=== PATIENT | female | born 1990 | race Hispanic/Latino ===

== ENCOUNTER 2017-11-08 14:59 | Emergency (ER) | payer MEDICARE ==
[~2017-11-08] VITALS: Ht 162.6 cm; Wt 70.3 kg
--- OUTSIDE RECORDS SUMMARY | 2017-11-08 15:02 | XMS REPORT | Clinical Summary ---
Author Author [facility] Address Unknown Phone Unavailable Care Team Providers Care Side Seam Machine Operator Name Role Phone System, Not In MD PCP Unavailable Allergies Active Allergy Reactions Severity Noted Date Comments Hydrocodone-Acetaminophen 06/03/2016 Current Medications No known medications Active Problems Not on file Social History Tobacco Use Types Packs/Day Years Used Date Never Smoker Alcohol Use Drinks/Week oz/Week Comments No Sex Assigned at Date Recorded Not on file Last Filed Vital Signs Not on file Plan of Treatment Health Maintenance Due Date Last Done Comments PAP SMEAR 2013 INFLUENZA VACCINE 02/21/2018 Results Not on fileafter 11/07/2016
--- OUTSIDE RECORDS SUMMARY | 2017-11-08 15:02 | XMS REPORT ---
Author Author [facility] Address Unknown Phone Unavailable Care Team Providers Care Bottling Equipment Sales Representative Name Role Phone Unavailable Unavailable Problems This patient has no known problems. Allergies, Adverse Reactions, Alerts This patient has no known allergies or adverse reactions. Medications This patient has no known medications. Encounters Start Date/Time End Date/Time Encounter Type Admission Type Attending [facility] Care Department Encounter ID [id number] 00:00:00 2017-01-25 00:00:00 Outpatient [facility] [id number]
[2017-11-08] MEDS ORDERED: ENOXAPARIN SODIUM INJ 100 MG/ML SYR SC ONE (18:00)
[2017-11-08] MEDS ORDERED: HYDROCODONE/APAP 5MG-325MG TAB PO ONE (18:00)
[2017-11-08 18:33] VITALS: BP 128/70
== END 2017-11-08 18:30 | disposition home or self-care (01) ==
LOC: FSED 14:59
DX: M79.605 Pain in left leg (principal); I82.412 Acute embolism and thrombosis of left femoral vein
CPT/HCPCS: 80053; 81003; 81025; 85025; 85610; 93971; 99283; J1650